=== PATIENT | male | born 1960 | race Caucasian/White ===

== ENCOUNTER 2022-10-22 10:11 | Inpatient (IN) | payer BC ==
[2022-10-22] MEDS ORDERED: Aspirin 81 MG Tab.Chew PO ONE (10:19)
[2022-10-22] MEDS ORDERED: Nitroglycerin 0.4 MG Tab.SL SL PRN (10:19)
[2022-10-22] MEDS ORDERED: Sodium Chloride 0.9% 1,000 ML IV ONE (10:19)
[2022-10-22 11:11] LABS: CARBON DIOXIDE,CO2 26.9 mmol/L (21.0-32.0); POTASSIUM,K 4.2 mmol/L (3.5-5.1)
[2022-10-22] MEDS ORDERED: Ondansetron 4 MG/2 ML SDV IVPUSH ONE (11:13)
[2022-10-22] MEDS ORDERED: Morphine 4 MG/ML Syringe IVPUSH ONE ×2 (11:13→13:42)
[2022-10-22 11:25] LABS: CORONAVIRUS COVID-19 NAA NEGATIVE (NEGATIVE); INFLUENZA A NAA NEGATIVE (NEGATIVE); INFLUENZA B NAA NEGATIVE (NEGATIVE); RESPIRATORY SYNCYTIAL VIR NAA NEGATIVE (NEGATIVE)
[2022-10-22] MEDS ORDERED: Enoxaparin 100 MG/1 ML Syringe SUBCUT ONE (13:42)
[2022-10-22] MEDS ORDERED: Morphine 2 MG/ML SYRINGE IVPUSH PRN (15:44)
[2022-10-22] MEDS ORDERED: Nitroglycerin/D5W 25 MG/250 ML BOTTLE IV SCH (15:45)
[2022-10-22] MEDS ORDERED: Acetaminophen 325 MG Tab PO PRN (15:49)
[2022-10-22] MEDS ORDERED: Sodium Chloride 0.9% 2.5 ML Syringe FLUSH PRN (15:49)
[2022-10-22] MEDS ORDERED: Sodium Chloride 0.9% 10 ML Syringe FLUSH PRN (15:49)
[2022-10-22] MEDS ORDERED: Ondansetron 4 MG/2 ML SDV IVPUSH PRN (15:49)
[2022-10-22] MEDS: Metoprolol Tartrate 25 MG Tab PO SCH (16:12)
[2022-10-22 16:44] LABS: HEMOGLOBIN A1C 5.5 %
[2022-10-22] MEDS ORDERED: atorvaSTATin 40 MG Tab PO SCH (21:00)
[2022-10-23] MEDS: Enoxaparin 100 MG/1 ML Syringe SUBCUT SCH ×2 (01:02→13:42)
[2022-10-23] MEDS: Metoprolol Tartrate 25 MG Tab PO SCH (04:21)
[2022-10-23 05:22] VITALS: PULSE 60
[2022-10-23 05:51] LABS: CARBON DIOXIDE,CO2 27.1 mmol/L (21.0-32.0)
[2022-10-23] MEDS ORDERED: Aspirin 81 MG Tab.Chew PO SCH (09:00)
[2022-10-23 14:09] VITALS: BP 113/58
== END 2022-10-23 13:45 | DRG 190 ==
LOC: MW.ED 10:11 → MW.ICU 15:37
PROVIDERS: ADMIT Internal Medicine; ATTEND Internal Medicine
DX: I21.4 Non-ST elevation (NSTEMI) myocardial infarction (principal); E66.9 Obesity, unspecified; Z68.31 Body mass index [BMI] 31.0-31.9, adult; H54.7 Unspecified visual loss; J30.9 Allergic rhinitis, unspecified; Z20.822 Contact with and (suspected) exposure to COVID-19; I10 Essential (primary) hypertension; Z79.899 Other long term (current) drug therapy; Z86.19 Personal history of other infectious and parasitic diseases; Z79.82 Long term (current) use of aspirin
CPT/HCPCS: 0241U; 36415; 71045; 71045-26; 80048; 80053; 80061; 81003; 83036; 84443; 84484; 85025; 93005; A9270-GY; J1650; J2270; J2405; J3490; J7030

== ENCOUNTER 2023-11-18 08:32 | Day surgery (SDC) | payer BC ==
[~2023-11-18 08:32] MED LIST: Lactated Ringers 1,000 ML IV SCH; Sodium Chloride 0.9% 10 ML Syringe FLUSH PRN; Sodium Chloride 0.9% 2.5 ML Syringe FLUSH PRN; Sodium Chloride 0.9% 20 ML SDV IV PRN
[2023-11-18] MEDS ORDERED: propofoL 50 ML ONE (09:12)
[2023-11-18 12:48] VITALS: BP 131/78; PULSE 72
== END 2023-11-18 10:53 | disposition home or self-care (01) ==
LOC: MW.SDS 08:32
PROVIDERS: ATTEND Surgery
DX: Z12.11 Encounter for screening for malignant neoplasm of colon (principal); D12.6 Benign neoplasm of colon, unspecified; Z79.899 Other long term (current) drug therapy; Z98.890 Other specified postprocedural states
CPT/HCPCS: 45378; J2704; J7120